=== PATIENT | male | born 1985 | race Caucasian/White ===

== ENCOUNTER 2017-07-27 08:46 | Emergency (ER) | payer OTHER ==
--- NOTE | 2017-07-27 09:31 | ED Physician Documentation ---
History of Present Illness - Stated complaint Stated Complaint: MALE - Chief complaint Chief Complaint: General - Additonal information Additional information: hx from pt health 32 make 1 week s/p vasectomy done in [place] on keflex since day before surgery had sutures removed a few days ago pain and swelling to right scrotum no fever [place] etc Review of Systems Constitutional: denies: Fever GI: denies: Nausea, Vomiting : reports: Testicular pain PD PAST MEDICAL HISTORY - Past Medical History Past Medical History: No - Past Surgical History Past Surgical History: No - Present Medications Home Medications: Ambulatory Orders Medication Instructions Recorded Confirmed Cephalexin [Keflex] 500 mg PO DAILY 07/27/17 07/27/17 - Allergies Allergies/Adverse Reactions: Allergies Allergy/AdvReac Type Severity Reaction Status Date / Time acetaminophen [From Percocet] Allergy Unknown Verified 07/27/17 09:39 oxycodone [From Percocet] Allergy Unknown Verified 07/27/17 09:39 - Social History Does the pt smoke?: No Smoking Status: Never smoker Does the pt drink ETOH?: Yes ETOH Use: Beer Does the pt have substance abuse?: No - Immunizations Immunizations are current?: Yes - POLST Patient has POLST: No PD ED PE NORMAL - Vitals Vital signs reviewed: Yes - Cardiac Cardiac: RRR - Respiratory Respiratory: No respiratory distress, Clear bilaterally - Male Male : Other (L ytestes NT nl lie nl cremasteric, R hemiscrotum for swelling and erythema and tenderness anteriior under healed small surgical incision, testicle itself seems NT and vertical lie but unable to elicit cremasteric likely 2/2 edema, no drainage) - Neuro Neuro: Alert and oriented X 3 Results - Vitals Vitals: Vital Signs - 24 hr 07/27/17 08:51 Temperature 36.2 C L Heart Rate 79 Respiratory 15 Rate Blood Pressure 129/78 O2 Saturation 99 Oxygen O2 Source Room air - Rads (name of study) sono Radiology: See rad report (no abscess, nl blood flow, nl testicle) Departure - Departure Clinical Impression: Scrotal swelling Condition: Good Comments: The ultrasound showed a normal testicle with normal blood flow and no abscess You may have some residual fluid and swelling from the surgery - sometimes this can increase again when you start to feel better and increase your activity Recommend you continue your antibiotic, take motrin for pain, wear supportive underwear and apply ice packs as needed Follow up with your urologist next week Return to the ER if worse
--- NOTE | 2017-07-27 11:26 | Ultrasound Preliminary Report ---
Exam: US TESTICLE W/DOPPLER IMPRESSION: 1. No testicular mass or ultrasound evidence of infection or torsion. 2. Other findings as noted above. [facility] SITE ID: [id number]
--- NOTE | 2017-07-27 11:28 | Ultrasound Report ---
EXAM: SCROTAL ULTRASOUND EXAM DATE: 07/27/2017 11:00 AM. CLINICAL HISTORY: R scrotal pain and swelling s/p vas. COMPARISON: None. TECHNIQUE: Real-time scanning was performed with static images obtained. Both color-flow and Doppler spectral analysis were utilized. FINDINGS: Right: Testis: 4.8 x 3.1 x 3.2 cm. Normal size and echotexture. No mass, calcification, or abnormal blood fl ow. Epididymis: 1.0 x 1.1 x 1.0 cm. Normal size and echotexture. No mass or abnormal blood flow. Hydrocele: None. Varicocele: None. Left: Testis: 4.7 x 3.0 x 2.3 cm. Normal size and echotexture. No mass, calcification, or abnormal blood fl ow. Epididymis: 1.1 x 1.1 x 0.5 cm. Normal size and echotexture. There is a 3 mm cyst. No other mass or a bnormal blood flow. Hydrocele: None. Varicocele: None. IMPRESSION: 1. No testicular mass or ultrasound evidence of infection or torsion. 2. Other findings as noted above. [facility] Referring Provider Line: [phone] SITE ID: [id number]
[2017-07-27 11:50] VITALS: BP 133/82
== END 2017-07-27 11:49 | disposition home or self-care (01) ==
LOC: ED 08:46
DX: N50.89 Other specified disorders of the male genital organs (principal); N50.82 Scrotal pain
CPT/HCPCS: 76870; 93975; 99283

== ENCOUNTER 2018-11-15 15:43 | Emergency (ER) | payer OTHER ==
[2018-11-15 15:59] VITALS: BP 151/82
[2018-11-15 16:38] LABS: BASOPHILS % (AUTO) 0.6 %; EOSINOPHILS # (AUTO) 0.1 10^3/uL (0.0-0.7); EOSINOPHILS % (AUTO) 2.4 %; HGB - HEMOGLOBIN 14.3 g/dL (14.0-18.0); LYMPHOCYTES # (AUTO) 1.6 10^3/uL (1.5-3.5); LYMPHOCYTES % (AUTO) 30.6 %; MEAN CORPUSCULAR HEMOGLOBIN 29.1 pg (27.0-31.0); MEAN CORPUSCULAR HGB CONC 33.3 g/dL (32.0-36.0); MEAN CORPUSCULAR VOLUME 87.2 fL (80.0-94.0); MEAN PLATELET VOLUME 8.2 fL (7.4-11.4); MONOCYTES # (AUTO) 0.4 10^3/uL (0.0-1.0); MONOCYTES % (AUTO) 8.2 %; NEUTROPHILS % (AUTO) 58.2 %; PLT - PLATELET COUNT 221 10^3/uL (130-450); RED BLOOD COUNT 4.91 10^6/uL (4.70-6.10); RED CELL DISTRIBUTION WIDTH 13.5 % (12.0-15.0); WHITE BLOOD COUNT 5.2 x10^3/uL (4.8-10.8)
[2018-11-15 16:51] LABS: ALBUMIN 4.6 g/dL (3.2-5.5); ALBUMIN/GLOBULIN RATIO 1.5 (1.0-2.2); BILIRUBIN,TOTAL 0.8 mg/dL (0.2-1.0); CALCIUM 9.4 mg/dL (8.5-10.3); CREATININE 0.9 mg/dL (0.6-1.2); TOTAL PROTEIN 7.6 g/dL (6.7-8.2)
--- NOTE | 2018-11-15 16:58 | XRAY Report ---
Reason: Chest Pain Procedure Date: 11/15/2018 Accession Number: [id number] / [id number] Procedure: XR - Chest 1 View X-Ray CPT Code: 29238 FULL RESULT: EXAM: CHEST RADIOGRAPHY EXAM DATE: 11/15/2018 04:32 PM. CLINICAL HISTORY: Chest Pain. COMPARISON: None. TECHNIQUE: 1 view. FINDINGS: Lungs/Pleura: No focal opacities evident. No pleural effusion. No pneumothorax. Mediastinum: Within exam limitations, the cardiomediastinal contour is normal. Other: None. IMPRESSION: Negative chest. [facility]
--- NOTE | 2018-11-15 17:21 | ED Physician Documentation ---
History of Present Illness - Stated complaint Stated Complaint: CHEST PX - Chief complaint Chief Complaint: Cardiac - History obtained from History obtained from: Patient - History of Present Illness Timing: Last night Pain level max: 1 Pain level now: 0 - Additonal information Additional information: 33-year-old male comes complains of intermittent sharp chest pain last night. Last 1-2 seconds at a time. Occurred 4-5 times. Asymptomatic currently. Nothing made it better or worse. Happened a few years ago as well. Review of Systems Constitutional: denies: Fever, Chills Respiratory: denies: Cough GI: denies: Nausea, Vomiting, Diarrhea Skin: denies: Rash Musculoskeletal: denies: Neck pain, Back pain PD PAST MEDICAL HISTORY - Past Medical History Past Medical History: No - Past Surgical History Past Surgical History: No - Present Medications Home Medications: Ambulatory Orders Medication Instructions Recorded Confirmed Cephalexin [Keflex] 500 mg PO DAILY 07/27/17 07/27/17 - Allergies Allergies/Adverse Reactions: Allergies Allergy/AdvReac Type Severity Reaction Status Date / Time acetaminophen [From Percocet] AdvReac Unknown Verified 11/15/18 15:53 oxycodone [From Percocet] AdvReac Unknown Verified 11/15/18 15:53 - Social History Does the pt smoke?: No Smoking Status: Never smoker Does the pt drink ETOH?: Yes Does the pt have substance abuse?: No - Immunizations Immunizations are current?: Yes - POLST Patient has POLST: No PD ED PE NORMAL - Vitals Vital signs reviewed: Yes - General General: Alert and oriented X 3, No acute distress, Well developed/nourished - HEENT HEENT: PERRL, Moist mucous membranes - Neck Neck: Supple, no meningeal sign - Cardiac Cardiac: RRR - Respiratory Respiratory: No respiratory distress, Clear bilaterally - Abdomen Abdomen: Soft, Non tender, Non distended - Derm Derm: Warm and dry, No rash - Extremities Extremities: No edema, No calf tenderness / cord - Neuro Neuro: Alert and oriented X 3 - Psych Psych: Normal mood, Normal affect Results - Vitals Vitals: Oxygen O2 Source Room air - EKG (time done) 1551 Rate: Rate (enter#) (88) Rhythm: NSR [place]: Normal Intervals: Normal UT QRS: Normal Ischemia: Normal ST segments - Labs Labs: Laboratory Tests 11/15/18 11/15/18 11/15/18 16:33 16:33 16:33 WBC 5.2 RBC 4.91 Hgb 14.3 Hct 42.8 MCV 87.2 MCH 29.1 MCHC 33.3 RDW 13.5 Plt Count 221 MPV 8.2 Neut # (Auto) 3.0 Lymph # (Auto) 1.6 [place] # (Auto) 0.4 Eos # (Auto) 0.1 Baso # (Auto) 0.0 Absolute Nucleated RBC 0.01 Nucleated RBC % 0.1 Sodium 137 Potassium 3.8 Chloride 102 Carbon Dioxide 27 Anion Gap 8.0 BUN 17 Creatinine 0.9 Estimated GFR (MDRD) 97 Glucose 92 Calcium 9.4 Total Bilirubin 0.8 AST 31 ALT 30 Alkaline Phosphatase 63 Troponin I < 0.04 Total Protein 7.6 Albumin 4.6 Globulin 3.0 Albumin/Globulin Ratio 1.5 Lipase 52 H - Rads (name of study) cxr Radiology: Prelim report reviewed, EMP read contemporaneously, See rad report (no acute disease) PD MEDICAL DECISION MAKING - ED course Complexity details: reviewed results, re-evaluated patient, considered differential, d/w patient ED course: 33-year-old male with what sounds like intermittent palpitations, likely premature ventricular contractions. No arrhythmia on telemetry. No evidence of acute coronary syndrome. No evidence of pulmonary embolus. Will follow up with his doctor for further care. Patient counseled regarding signs and symptoms for which I believe and urgent re-evaluation would be necessary. Patient with good understanding of and agreement to plan and is comfortable going home at this time This document was made in part using voice recognition software. While efforts are made to proofread this document, sound alike and grammatical errors may occur. Departure - Departure Disposition: 01 Home, Self Care Clinical Impression: Heart palpitations Condition: Good Instructions: ED Palpitations Follow-Up: Your,doctor in 1 week [Other] Comments: You are likely having premature ventricular contractions. These can be worsened by caffeine and energy drinks. Return if you worsen. Follow-up with your doctor for further care. They may want to place you on a Holter monitor as well to evaluate how often these are occurring Discharge Date/Time: 11/15/18 17:29
== END 2018-11-15 17:29 | disposition home or self-care (01) ==
LOC: ED 15:43
DX: R00.2 Palpitations (principal)
CPT/HCPCS: 36415; 71045; 80053; 83690; 84484; 85025; 93005; 99281; 99283